=== PATIENT | female | born 1985 | race African-American/Black ===

== ENCOUNTER 2017-06-07 09:05 | Emergency (ER) | payer BC, OTHER ==
[~2017-06-07 09:05] MED LIST: AZITHROMYCIN250 MG PO; ERYTHROMYCIN O3.5 G1 OS; ERYTHROMYCIN250 MG PO; FLONASE16 GM; TRIAMCINOLONE A15 G3 EXT
[2017-06-07 11:27] LABS: URINE SOURCE CLEAN CATCH
[2017-06-07 11:32] LABS: URINE APPEARANCE CLOUDY; URINE BILIRUBIN NEG (NEG); URINE BLOOD NEG (NEG); URINE COLOR DK YELLOW; URINE GLUCOSE NEG (NEG); URINE KETONE NEG (NEG); URINE LEUKOCYTE ESTERASE 1+ (NEG); URINE NITRATE NEG (NEG); URINE PROTEIN TRACE (NEG); URINE SPECIFIC GRAVITY 1.023 (1.003-1.035)
[2017-06-07 11:32] LABS: BASOPHIL% 0.5 % (0-2.5); EOSINOPHIL# 0.2 X10e3 (0-0.7); EOSINOPHIL% 1.8 % (0.0-7.0); HEMATOCRIT 32.5 % (35.0-45.0); HEMOGLOBIN 11.1 gm/dL (12.0-16.0); LYMPHOCYTE# 1.4 X10e3 (1.0-3.5); LYMPHOCYTE% 14.1 % (17.0-45.0); MEAN CELL VOLUME 82.1 FL (83-96); MEAN CORPUSCULAR HEMOGLOBIN 27.9 PG (28-34); MEAN PLATELET VOLUME 7.5 FL (6.5-11.5); MONOCYTE# 0.8 X10e3 (0-1.0); MONOCYTE% 8.6 % (3.0-12.0); NEUTROPHIL# 7.3 X10e3 (1.5-7.1); PLATELET COUNT 351 X10e3 (140-420); RED BLOOD COUNT 3.96 X10e (3.90-5.30); RED CELL DISTRIBUTION WIDTH 13.7 % (11.0-15.5); WHITE BLOOD COUNT 9.7 X10e3 (4.0-10.5)
[2017-06-07 11:34] LABS: CULTURE INDICATED? YES; URINE BACTERIA AUWI 4+ (NEGATIVE); URINE SQUAMOUS EPITHELIAL CELL MANY /[HPF]
[2017-06-07 11:38] LABS: DIFF IND NO
[2017-06-07 12:11] LABS: ALBUMIN SERUM 2.8 g/dL (3.5-5.0); BILIRUBIN, DIRECT 0.1 mg/dL (0.0-0.2); BILIRUBIN,INDIRECT 0.3 mg/dL (0.0-0.9); BILIRUBIN,TOTAL 0.4 mg/dL (0.2-2.0); CALCIUM SERUM 8.2 mg/dL (8.4-10.2); CREATININE SERUM 0.5 mg/dL (0.6-1.4); GLOM FILT RATE Estimated 150.5 mL/min (>60); POTASSIUM 3.3 mmol/L (3.5-5.1); PROTEIN TOTAL SERUM 6.8 g/dL (6.0-8.3)
== END 2017-06-07 13:15 | disposition home or self-care (01) ==
LOC: CED 09:05
PROVIDERS: Emergency Medicine
DX: O23.12 Infections of bladder in pregnancy, second trimester (principal); Z3A.21 21 weeks gestation of pregnancy; Z88.0 Allergy status to penicillin; Z90.49 Acquired absence of other specified parts of digestive tract
CPT/HCPCS: 36415; 80048; 80076; 81003; 85025; 87086; 87651; 96360; 99284